=== PATIENT | female | born 1960 | race African-American/Black ===

== ENCOUNTER 2017-02-18 07:00 | Emergency (ER) | payer SELFPAY ==
[~2017-02-18] VITALS: Ht 162.6 cm; Wt 92.5 kg
[2017-02-18 07:09] VITALS: BP 137/92
--- NOTE | 2017-02-18 07:31 | PHYS DOC ---
Past Medical History Past Medical History: Seizure Additional Past Medical Histor: endometriosis Past Surgical History: Other Additional Past Surgical Histo: colonoscopy, lapraoscopy, Alcohol Use: Rarely Drug Use: None Adult General Chief Complaint Chief Complaint: LOWER EXT PAIN HPI HPI Patient is a 56 year old female presents emergency Department today with complaint of atraumatic bilateral foot pain that began yesterday. Patient denies any history of inflammatory arthritide's of bone forming disorders. She does have a bunion on her right foot that is otherwise been fairly asymptomatic. Patient states that she began a new job yesterday when she was up on her feet "all day". She denies any new shoe wear as well. Patient denies any history of diabetes or vascular disorders. Review of Systems Review of Systems Constitutional: Denies fever or chills [] Eyes: Denies change in visual acuity, redness, or eye pain [] HENT: Denies nasal congestion or sore throat [] Respiratory: Denies cough or shortness of breath [] Cardiovascular: No additional information not addressed in HPI [] GI: Denies abdominal pain, nausea, vomiting, bloody stools or diarrhea [] : Denies dysuria or hematuria [] Musculoskeletal: Denies back pain or joint pain [] Integument: Denies rash or skin lesions [] Neurologic: Denies headache, focal weakness or sensory changes [] Endocrine: Denies polyuria or polydipsia [] Physical Exam Physical Exam Constitutional: Well developed, well nourished, no acute distress, non-toxic appearance. [] HENT: Normocephalic, atraumatic, bilateral external ears normal, oropharynx moist, no oral exudates, nose normal. [] Eyes: PERRLA, EOMI, conjunctiva normal, no discharge. [] Neck: Normal range of motion, no tenderness, supple, no stridor. [] Cardiovascular:Heart rate regular rhythm, no murmur [] Lungs & Thorax: Bilateral breath sounds clear to auscultation [] Abdomen: Bowel sounds normal, soft, no tenderness, no masses, no pulsatile masses. [] Skin: Warm, dry, no erythema, no rash. [] Back: No tenderness, no CVA tenderness. [] Extremities: Bilateral lower extremities are warm and dry. Patient has both strong dorsalis pedis and posterior tibialis pulses. There are no dystrophic changes noted to either lower extremity. Patient has positive sensation with 2- point discrimination. She is able to plantar and dorsiflex. Hallux valgus as noted on the right foot. Neurologic: Alert and oriented X 3, normal motor function, normal sensory function, no focal deficits noted. [] Psychologic: Affect normal, judgement normal, mood normal. [] Current Patient Data Vital Signs Vital Signs Date Time Temp Pulse Resp B/P Pulse Ox O2 Delivery O2 Flow Rate FiO2 02/18/17 07:09 97.9 93 137/92 99 Room Air 97.9 Lab Values Laboratory Tests Test 02/18/17 07:39 Glucose (Fingerstick) 98mg/dL (70-99) EKG EKG [] Radiology/Procedures Radiology/Procedures Bilateral foot films were performed. There is no evidence of acute process. There is scattered mild to moderate degenerative joint disease with prominent hallux valgus on the right. Both MTPJ's with mild to moderate degeneration. Course & Med Decision Making Course & Med Decision Making Random D-stick is 96mg/dL Dragon Disclaimer Dragon Disclaimer This electronic medical record was generated, in whole or in part, using a voice recognition dictation system. Departure Departure Impression: Primary Impression: Osteoarthritis Additional Impression: Bunion Disposition: 01 HOME, SELF-CARE Condition: GOOD Referrals: NO PCP (PCP) Patient Instructions: Bunion (Hallux Valgus)-SportsMed, Osteoarthritis Additional Instructions: 1. As discussed, you have arthritic changes in your foot. You also had the bunion of your right great toe. 2. Review the discharge instructions for self-care and reasons to return to the emergency department. 3. Take the medication as prescribed. 4. You can call either Dr. Fry's office at [phone] Flowers's office at [phone] to schedule an appointment with one of these armored vehicle officer. Scripts Tramadol Hcl 50 Mg Tablet1 Tab PO QHS PAIN #10 TAB Prov:JORDIN LUQUE 02/18/17 Naproxen Sodium (Anaprox Ds)550 Mg Tablet1 Tab PO PRN Q12HRS #30 TAB Ref 1 Prov:JORDIN LUQUE 02/18/17 Problem Qualifiers JORDIN LUQUE Feb 18, 2017 07:31
--- NOTE | 2017-02-18 08:10 | RAD ---
Bilateral feet radiographs History: Atraumatic foot pain beginning previous day, worsening today. Comparison: None. Findings: AP, lateral, and oblique views of the left foot. No acute fracture or dislocation is identified. Mild mid foot degeneration is seen. Mild plantar calcaneal enthesophyte is seen. AP, lateral, and oblique views of the right foot. Mild-moderate hallux valgus is seen. Mild first MTP degeneration is present. No acute fracture or dislocation is appreciated. Mild mid foot degeneration is seen. Mild plantar calcaneal enthesophyte is seen. Impression: 1. No acute osseous abnormality identified. 2. Bilateral degeneration. 3. Right hallux valgus.
[2017-02-18] MEDS ORDERED: TRAM50TA PO (08:18)
[2017-02-18] MEDS ORDERED: NAPR550T PO (08:18)
== END 2017-02-18 08:24 | disposition home or self-care (01) ==
LOC: ER 07:00
DX: M19.072 Primary osteoarthritis, left ankle and foot (principal); M19.071 Primary osteoarthritis, right ankle and foot; M21.612 Bunion of left foot; M21.611 Bunion of right foot
CPT/HCPCS: 73630; 82947; 99284

== ENCOUNTER 2018-04-27 10:55 | Emergency (ER) | payer OTHER ==
[2018-04-27] MEDS: ACETAMINOPHEN 500 MG TABLET PO (12:32)
== END 2018-04-27 13:17 | disposition home or self-care (01) ==
LOC: ER 10:55
DX: S06.0X0A Concussion without loss of consciousness, initial encounter (principal); S13.9XXA Sprain of joints and ligaments of unspecified parts of neck, initial encounter; S30.0XXA Contusion of lower back and pelvis, initial encounter; I10 Essential (primary) hypertension; R42 Dizziness and giddiness; W18.09XA Striking against other object with subsequent fall, initial encounter; Y93.89 Activity, other specified; Y99.8 Other external cause status; Y92.89 Other specified places as the place of occurrence of the external cause
CPT/HCPCS: 70450; 72125; 72131; 99284-25